=== PATIENT | male | born 1950 | race Caucasian/White ===

== ENCOUNTER 2020-03-10 07:51 | Outpatient (REF) | payer MEDICARE, SELFPAY ==
--- NOTE | 2020-03-10 08:22 | XR_ITS ---
EXAMINATION: XR SHOULDER, RIGHT CLINICAL INFORMATION: Pain right shoulder COMPARISON: None TECHNIQUE: AP external rotation, Grashey, scapular Y, and axillary views of the right shoulder. FINDINGS: There is mild loss of glenohumeral joint and AC joint space with periarticular spurring along the lateral acromion. No visible acute fracture, dislocation or subluxation seen. The soft tissues are normal. XR/XR shoulder RT min 2V IMPRESSION: Mild degenerative changes lateral joint and right AC joint. No visible acute fracture, dislocation or subluxation seen.
== END 2020-03-10 07:52 | disposition home or self-care (01) ==
LOC: HO.XRAY 07:51
PROVIDERS: PCP Internal Medicine; Visit Provider Physician Assistant
DX: M25.511 Pain in right shoulder (principal)
CPT/HCPCS: 73030

== ENCOUNTER → 2020-03-22 09:17 | Outpatient (BNVA) | payer MEDICARE, SELFPAY | PROVIDERS: PCP Internal Medicine; Visit Provider Orthopaedic Surgery | DX: M75.41 Impingement syndrome of right shoulder (principal) | CPT/HCPCS: 20610; 99202; J1100 ==

== ENCOUNTER 2020-04-28 07:08 | Outpatient (REF) | payer MEDICARE, SELFPAY ==
[2020-04-28 07:44] LABS: MANUAL DIFF FLAG NO
[2020-04-28 08:09] LABS: Basophils Percent Auto 0.4 % (0-2); Eosinophils Absolute Auto 0.2 X10*3/uL (0.0-0.4); Eosinophils Percent Auto 2.4 % (0-4); Hematocrit 46.3 % (42-52); Hemoglobin 15.4 g/dl (14.0-18.0); Imm Gran Abs Auto 0.02 X10*3/uL (0.00-0.03); Imm Gran Pct Auto 0.3 % (0.0-0.4); Lymphocytes Absolute Auto 1.8 X10*3/uL (1.2-4.9); Lymphocytes Percent Auto 26.9 % (20-40); Mean Corpuscular HGB Conc 33.3 g/dl (31.0-36.0); Mean Corpuscular Volume 96.1 fL (80-98); Mean Platelet Volume 10.3 fL (9.4-12.4); Monocytes Absolute Auto 0.7 X10*3/uL (0.1-1.2); Monocytes Percent Auto 10.6 % (2-11); Neutrophils Percent Auto 59.4 % (45-73); Platelet Count 200 X10*3/uL (160-400); Red Blood Count 4.82 X10*6/uL (4.60-5.80); Red Cell Distribution Width 13.3 % (11.0-16.0); White Blood Count 6.7 X10*3/uL (4.8-10.8)
[2020-04-28 08:18] LABS: Alanine Aminotransferase 34 U/L (0-40); Alkaline Phosphatase 35 U/L (39-117); Anion Gap 12 (12-20); Aspartate Amino Transferase 31 U/L (5-37); Bilirubin Total 1.2 mg/dL (0.0-1.0); Blood Urea Nitrogen 12 mg/dL (9-16); Calcium 8.7 mg/dL (8.4-10.2); Carbon Dioxide 28 mmol/L (22-29); Chloride 103 mmol/L (96-108); Cholesterol 154 mg/dL; Estimated Glomerular Filt Rate > 60; Glucose Random 122 mg/dL (60-115); HDL Cholesterol 65 mg/dL; LDL Cholesterol Calculated 65 mg/dl; Potassium 4.7 mmol/L (3.3-5.1); Sodium 138 mmol/L (135-145); Total Protein 6.8 g/dL (6.5-8.0); Triglycerides 122 mg/dL
[2020-04-28 08:26] LABS: Estimated Average Glucose 117 mg/dL; Hemoglobin A1c % 5.7 %
[2020-04-28 08:40] LABS: Free T4 (Free Thyroxine) 0.88 ng/dL (0.71-1.85); Prostate Specific Antigen Scr 1.72 ng/mL (<0.05-4.0); Thyroid Stimulating Hormone 1.65 uIU/mL (0.32-4.0)
[2020-04-30 08:31] LABS: Folate 15.5 ng/mL (> or = 4.0); Vitamin B12 228 pg/mL (200-900)
== END 2020-04-28 07:09 | disposition home or self-care (01) ==
LOC: HO.LAB 07:08
PROVIDERS: PCP Internal Medicine; Visit Provider Internal Medicine
DX: E66.9 Obesity, unspecified (principal); E78.00 Pure hypercholesterolemia, unspecified
CPT/HCPCS: 36415; 80053; 80061; 82607; 82746; 83036; 84153; 84439; 84443; 85025

== ENCOUNTER 2020-08-02 07:00 | Outpatient (RCR) | payer MEDICARE, SELFPAY ==
--- NOTE | 2020-05-03 13:59 | MHC.PT.EP ---
[facility] [place] Office [place] Office [place] Office [address] Tushar Wilson [address] [phone] F: [phone] F: [phone] F: [phone] F: [phone] Physical Therapy Plan of Care Date of Evaluation: 05/03/20 Date of Surgery: n/a Diagnosis: R shoulder impingement Assessment: Patient is a 69 year old R handed male who presents with s/s consistent with R shoulder pain/subacromial impingement. He is currently not working and has been very sedentary during the pandemic. Patient past medical history includes obesity. Current impairments include pain, ROM, posture, strength, safety, independence, activity tolerance and functional mobility. Functional limitations include decreased ability to roll in bed, lift, carry, push, pull, dress, reach, and perform weight bearing activities.. Patient is motivated with good rehab potential. Skilled PT will address impairments and functional limitations in order to achieve goals. Frequency and Duration: The patient will be seen 2x/week for 6 weeks Short Term Goals: I with HEP - 2 weeks AROM flexion/abd to 90, ER/IR arc to 120 - 3 weeks Able to sleep 4 hours without sleep disturbance - 3 weeks Mcfp Goals: SPADI 40/130 - 5 weeks strength 4/5 grossly - 6 weeks AROM flexion/abd 120, ER/IR arc 140 - 6 weeks Treatment Plan: Modalities to reduce pain, spasms and effusion. Manual therapy to restore motion and function. Therapeutic exercise to improve strength and flexibility. Neuromuscular re-education for posture and balance. Therapeutic activities to return to functional activities of daily living. Electronically signed by: Elvis Ambriz, PT Please sign and return to therapist. Thank you for your referral.
--- NOTE | 2020-08-07 11:47 | MHC.PT.DC ---
[facility] [place] Office [place] Office [place] Office [address] Tushar Wilson [address] [phone] F: [phone] F: [phone] F: [phone] F: [phone] Physical Therapy Discharge Report Diagnosis: R shoulder impingement Date of Surgery: n/a Date of Evaluation: 05/03/20 Date of Discharge: 08/07/20 Treatments to Date: 24 Cancellations to Date: 0 No Shows to Date: 0 Discharge Status: Achieved Goals Improved Function Independent with HEP Discharge Summary: Pt called to self d/c instead of attend final visit. At time of last visit, Pt has met all goals and improved tremendously. Objective measurements all up to date. He was issued a comprehensive HEP today that he has at home to continue with. Pt will continue to perform for 2 more visits then transition exclusively to HEP. Electronically signed by: Anuradha Sultana PT Please sign and return to therapist. Thank you for your referral.
== END 2020-08-07 11:47 | disposition home or self-care (01) ==
LOC: HO.PTCHIC 07:00
PROVIDERS: PCP Internal Medicine; Visit Provider Internal Medicine
DX: M75.41 Impingement syndrome of right shoulder (principal)
CPT/HCPCS: 97110; 97140; 97162

== ENCOUNTER 2021-01-07 09:19 | Outpatient (REF) | payer MEDICARE, SELFPAY ==
[2021-01-07 10:08] LABS: Hematocrit 45.3 % (42-52); Hemoglobin 15.4 g/dl (14.0-18.0); Platelet Count 195 X10*3/uL (160-400); Red Blood Count 4.67 X10*6/uL (4.60-5.80); Red Cell Distribution Width 13.4 % (11.0-16.0); White Blood Count 5.6 X10*3/uL (4.8-10.8)
[2021-01-07 10:20] LABS: Alanine Aminotransferase 65 U/L (0-40); Albumin Level 3.8 g/dL (3.5-5.0); Alkaline Phosphatase 35 U/L (39-117); Anion Gap 12 (12-20); Aspartate Amino Transferase 56 U/L (5-37); Bilirubin Total 0.8 mg/dL (0.0-1.0); Blood Urea Nitrogen 11 mg/dL (9-16); Calcium 8.6 mg/dL (8.4-10.2); Carbon Dioxide 25 mmol/L (22-29); Chloride 105 mmol/L (96-108); Cholesterol 154 mg/dL; Estimated Glomerular Filt Rate > 60; Glucose Fasting 114 mg/dL (60-99); HDL Cholesterol 55 mg/dL; LDL Cholesterol Calculated 77 mg/dl; Magnesium 2.3 mg/dL (1.6-2.6); Potassium 4.9 mmol/L (3.3-5.1); Sodium 137 mmol/L (135-145); Total Protein 6.6 g/dL (6.5-8.0); Triglycerides 113 mg/dL
[2021-01-07 10:22] LABS: Estimated Average Glucose 120 mg/dL; Hemoglobin A1c % 5.8 %
[2021-01-07 10:46] LABS: TSH reflex Free T4 1.53 uIU/mL (0.32-4.0); Vitamin D 25-OH Total 23.8 ng/mL (>30)
[2021-01-07 10:56] LABS: Folate 12.5 ng/mL (> or = 4.0); Vitamin B12 224 pg/mL (200-900)
[2021-01-10 23:26] LABS: Zinc 60 mcg/dL (60-130)
== END 2021-01-07 09:20 | disposition home or self-care (01) ==
LOC: HO.10HDL 09:19
PROVIDERS: Visit Provider Physician Assistant
DX: Z13.220 Encounter for screening for lipoid disorders (principal); E66.9 Obesity, unspecified; K13.0 Diseases of lips; I10 Essential (primary) hypertension
CPT/HCPCS: 36415; 80053; 80061; 82306; 82607; 82746; 83036; 83735; 84443; 84630; 85027

== ENCOUNTER 2021-02-20 08:45 | Outpatient (REF) | payer MEDICARE, SELFPAY ==
--- NOTE | ~2021-02-20 | US_ITS ---
EXAMINATION: US ABDOMEN LIMITED WITH LIVER ELASTOGRAPHY CLINICAL INFORMATION: Abnormal serum levels. COMPARISON: None. TECHNIQUE: Real-time imaging of the abdominal viscera. Noninvasive ultrasound liver fibrosis assessment is performed using Sonia ElastPQ point quantification shear wave elastography (pSWE) with a C5-2 MHz transducer. Multiple elastography samples are obtained. FINDINGS: PANCREAS: Visualized portions unremarkable. LIVER: Diffuse increased echotexture without focal abnormality. The right lobe measures 19.0 cm in length. The left lobe measures 12.4 cm in length. Portal flow is hepatopedal. Shear wave liver elastography median stiffness is 1.32 m/s (reference: normal median stiffness is 1.3 m/s or less). IQR/median stiffness to assess sampling precision is 0.22 (reference: good quality data set is IQR/median stiffness of 0.15 or less). GALLBLADDER: Surgically absent. COMMON BILE DUCT: The common hepatic duct measures 0.7 cm. The common bile duct measures 0.5 cm. RIGHT KIDNEY: 12.1 cm. Unremarkable. FREE FLUID: None. US/US abdomen lane w elastography IMPRESSION: 1. Hepatic steatosis. 2. Liver elastography: Liver stiffness, high probability normal. REFERENCE: Society of Radiologists in Ultrasound Liver Stiffness Thresholds (2020): LIVER STIFFNESS THRESHOLDS: *Liver Stiffness equal or less than 1.3 m/s: High probability of being normal. *Liver Stiffness less than 1.7 m/s: In the absence of other known clinical signs, rules out compensated advanced chronic liver disease. *Liver Stiffness 1.7-2.1 m/s: Suggestive of compensated advanced chronic liver disease but need further test for confirmation. *Liver Stiffness over 2.1 m/s: Rules in compensated advanced chronic liver disease. *Liver Stiffness over 2.4 m/s: Suggestive of clinically significant portal hypertension. QUALITY OF DATA SET: *IQR/Median value equal or less than 0.15 implies a quality data set. *IQR/Median value over 0.15 implies a poor quality data set. SIGNIFICANT CHANGE FROM PRIOR EXAM: Significant change if liver stiffness measurement is 10% or greater from prior exam. OTHER CONSIDERATIONS: The stage of liver fibrosis may be overestimated in the setting of acute hepatitis, liver inflammation, elevated liver function tests, hepatic vascular congestion, obstructive cholestasis, non-fasting state, and infiltrative diseases such as amyloidosis and lymphoma. In some patients with NAFLD, the liver stiffness thresholds for compensated advanced chronic liver disease may be lower. In causes other than viral hepatitis and NAFLD, liver stiffness thresholds are not well established.
== END 2021-02-20 08:46 | disposition home or self-care (01) ==
LOC: HO.US 08:45
PROVIDERS: PCP Internal Medicine; Visit Provider Physician Assistant
DX: R74.8 Abnormal levels of other serum enzymes (principal)
CPT/HCPCS: 76705; 76981

== ENCOUNTER 2021-12-25 08:19 | Outpatient (REF) | payer MEDICARE, SELFPAY ==
[2021-12-25 11:51] LABS: Anion Gap 16 (12-20); Blood Urea Nitrogen 11 mg/dL (9-16); Calcium 8.5 mg/dL (8.4-10.2); Carbon Dioxide 24 mmol/L (22-29); Chloride 104 mmol/L (96-108); Estimated Glomerular Filt Rate > 60; Glucose Fasting 119 mg/dL (60-99); Potassium 4.6 mmol/L (3.3-5.1); Sodium 139 mmol/L (135-145)
[2021-12-25 12:46] LABS: Prostate Specific Antigen 1.71 ng/mL (<0.05-4.0)
== END 2021-12-25 08:20 | disposition home or self-care (01) ==
LOC: HO.HMGCLDS 08:19
PROVIDERS: PCP Internal Medicine; Visit Provider Nurse Practitioner Family
DX: R73.01 Impaired fasting glucose (principal); Z13.1 Encounter for screening for diabetes mellitus; Z12.5 Encounter for screening for malignant neoplasm of prostate
CPT/HCPCS: 36415; 80048; 84153

== ENCOUNTER 2022-01-08 10:50 | Outpatient (REF) | payer MEDICARE, SELFPAY ==
[2022-01-08 14:13] LABS: Estimated Average Glucose 123 mg/dL; Hemoglobin A1c % 5.9 %
== END 2022-01-08 10:51 | disposition home or self-care (01) ==
LOC: HO.HMGCLDS 10:50
PROVIDERS: PCP Internal Medicine; Visit Provider Nurse Practitioner Family
DX: R73.01 Impaired fasting glucose (principal)
CPT/HCPCS: 36415; 83036

== ENCOUNTER 2022-12-18 07:09 | Outpatient (REF) | payer MEDICARE, SELFPAY ==
[2022-12-18 11:00] LABS: MANUAL DIFF FLAG NO
[2022-12-18 11:15] LABS: Basophils Percent Auto 0.5 % (0-2); Eosinophils Absolute Auto 0.2 X10*3/uL (0.0-0.4); Eosinophils Percent Auto 3.1 % (0-4); Hemoglobin 14.5 g/dl (14.0-18.0); Imm Gran Abs Auto 0.02 X10*3/uL (0.00-0.03); Imm Gran Pct Auto 0.3 % (0.0-0.4); Lymphocytes Percent Auto 35.5 % (20-40); Mean Corpuscular Hemoglobin 30.3 pg (27.0-33.0); Mean Corpuscular Volume 92.1 fL (80.0-98.0); Mean Platelet Volume 10.5 fL (9.4-12.4); Monocytes Absolute Auto 0.6 X10*3/uL (0.1-1.2); Monocytes Percent Auto 10.1 % (2-11); Neutrophils Absolute Auto 2.9 x10*3/uL (2.0-8.3); Neutrophils Percent Auto 50.5 % (45-73); Platelet Count 202 X10*3/uL (160-400); Red Blood Count 4.78 X10*6/uL (4.60-5.80); Red Cell Distribution Width 14.5 % (11.0-16.0); White Blood Count 5.8 X10*3/uL (4.8-10.8)
[2022-12-18 11:38] LABS: Alanine Aminotransferase 68 U/L (0-40); Albumin Level 3.7 g/dL (3.5-5.0); Alkaline Phosphatase 33 U/L (39-117); Anion Gap 15 (12-20); Aspartate Amino Transferase 50 U/L (5-37); Bilirubin Total 0.8 mg/dL (0.0-1.0); Blood Urea Nitrogen 12 mg/dL (9-16); Calcium 8.9 mg/dL (8.4-10.2); Carbon Dioxide 21 mmol/L (22-29); Chloride 107 mmol/L (96-108); Cholesterol 151 mg/dL (<200); Estimated Glomerular Filt Rate > 60; Glucose Random 115 mg/dL (60-115); HDL Cholesterol 47 mg/dL (>40); LDL Cholesterol Calculated 84 mg/dL (<100); Potassium 4.1 mmol/L (3.3-5.1); Sodium 139 mmol/L (135-145); Total Protein 6.9 g/dL (6.5-8.0); Triglycerides 103 mg/dL (<150)
[2022-12-18 11:58] LABS: Free T4 (Free Thyroxine) 0.85 ng/dL (0.71-1.85); Thyroid Stimulating Hormone 2.34 uIU/mL (0.32-4.0)
[2022-12-18 12:04] LABS: Folate 11.7 ng/mL (> or = 4.0); Prostate Specific Antigen Scr 1.68 ng/mL (<0.05-4.0); Vitamin B12 229 pg/mL (200-900)
[2022-12-18 12:45] LABS: Estimated Average Glucose 120 mg/dL; Hemoglobin A1c % 5.8 % (<6.0)
== END 2022-12-18 07:10 | disposition home or self-care (01) ==
LOC: HO.HMGCLDS 07:09
PROVIDERS: PCP Internal Medicine; Visit Provider Internal Medicine
DX: E66.9 Obesity, unspecified (principal); E78.00 Pure hypercholesterolemia, unspecified; R73.01 Impaired fasting glucose; Z12.5 Encounter for screening for malignant neoplasm of prostate
CPT/HCPCS: 36415; 80053; 80061; 82607; 82746; 83036; 84153; 84439; 84443; 85025

== ENCOUNTER 2022-12-25 10:46 | Outpatient (AMB) | payer MEDICARE, SELFPAY ==
[2022-12-25 10:55] VITALS: BP 140/90; PULSE 74; O2SAT 99; BMI 39.3
--- NOTE | 2022-12-25 10:55 | A.OFFVIS_ITS ---
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 Patient of Dr. Lua. Patient is up-to-date with his health preventative screenings and immunizations. [place] of care was reviewed with the patient and he was provided with a screening schedule. Patient reports that he has a healthcare proxy and MOLST form is on file. Recent blood work results from 12/2022 reviewed with the patient. [facility] Medical History (Updated 12/25/22 @ 13:35 by RUDDY Delgado) Annual physical exam Essential tremor Angular cheilitis Foot laceration Insomnia Obesity (BMI 30-39.9) Impingement syndrome of right shoulder History of varicose veins Surgical History History of colonoscopy Varicose veins of both lower extremities H/O gastric bypass History of tonsillectomy Hx of cholecystectomy History of hammer toe correction Family History Mother No problems noted. Father No problems noted. Social History Housing: House Alcohol intake: current Alcohol intake frequency: 3 or more drinks per day Alcohol type: beer Patient Tobacco Use Status: Never used Tobacco Tobacco use type: Cigarette e-Cigarette/Vaping Use: Never Used Second Hand Smoke Exposure: No Current occupational status: retired Current occupation: right handed Questionnaire Medicare Wellness Checkup [age] What gender do you identify with?: male During the past 4 weeks, how much have you been bothered by emotional problems such as feeling anxious, depressed, irritable, sad or downhearted, and blue?: not at all During the past 4 weeks, has your physical & emotional health limited your social activities with family, friends, neighbors, or groups?: not at all During the past 4 weeks, how much bodily pain have you generally had?: mild pain During the past 4 weeks, was someone available to help you if you needed & wanted help?: yes, as much as I wanted During the past 4 weeks, what was the hardest physical activity you could do for at least 2 minutes?: heavy Can you get to places out of walking distance without help? (For eg., can you travel alone on buses, taxis or drive your car?): Yes Can you go shopping for groceries or clothes without someone's help?: Yes Can you prepare your own meals?: Yes Can you do your housework without help?: Yes Because of any health problems, do you need the help of another person with your personal care needs such as eating, bathing, dressing or getting around the house?: No Can you handle your own money without help?: Yes During the past 4 weeks, how would you rate your health in general?: good During the past 4 weeks how have things been going for you?: pretty well Are you having difficulties driving your car?: no Do you always fasten your seat belt when you are in a car?: yes, usually During past 4 weeks, have you been bothered by the following: never: Falling or dizzy when standing up, Trouble eating well?, Teeth or denture problems?, Problems using the telephone? and Tiredness or fatigue? Have you fallen 2 or more times in the past year?: No Are you afraid of falling?: No Are you a smoker?: no During the past 4 weeks, how many drinks of wine, beer, or other alcoholic beverages did you have?: 2-5 drinks per week Do you exercise for about 20 minutes 3 or more times a week?: no, I usually do not exercise this much Have you been given information to help with the following?: no: Hazards in your house that might hurt you? and no: Keeping track of your medications? How often do you have trouble taking medicines the way you have been told to take them?: I do not have to take medicine How confident are you that you can control & manage most of your health problems?: somewhat confident What is your race?: White Mini Mental State Exam (MMSE) Orientation What is the (year) (season) (date) (day) (month)?: year, season, date, day and month Score Score: 5 Activity of Daily Living Bathing - sponge bath, tub bath or shower: receives no assistance (gets in/out by self, if usual bathing means Dressing - getting clothes from closets & drawers, including inner/outer garments & fasteners.: gets clothes & gets completely dressed without help Toileting - going to the 'toilet room' for urine/bowel elimination & cleaning self/arranging clothes: goes to toilet room, cleans self, arranges clothes without help Transfer: moves in & out of bed and chair without help (may use support object) Continence: controls urination/bowel movements completely by self Feeding: feeds self without help Total Score: 0 Information obtained from: patient Using telephone: independent Traveling: independent Shopping: independent Preparing meals: independent Housework: independent Taking medicine: independent Managing money: independent PHQ-9 Over the last 2 weeks, how often have you been bothered by any of the following problems? 1. Little interest or pleasure in doing things: not at all 2. Feeling down, depressed, or hopeless: not at all 3. Trouble falling or staying asleep, or sleeping too much: nearly every day 4. Feeling tired or having little energy: not at all 5. Poor appetite or overeating: not at all 6. Feeling bad about yourself - or that you are a failure or have let yourself or your family down: not at all 7. Trouble concentrating on things, such as reading the newspaper or watching television: not at all 8. Moving or speaking so slowly that other people could have noticed. Or the opposite - being so fidgety or restless that you have been moving around a lot more than usual: not at all 9. Thoughts that you would be better off or of hurting yourself in some way: not at all Total score: 3 Depression Screening Interpretation: Negative Depression Screening Done: Yes 79714 - PHQ-9 Billing: Yes Source: Developed by Drs. Castro Jordan, Patricia Sears, Jacques Cornell and colleagues, with an educational jaimie from [employer]. Physical Exam Vital Signs: Last Vital Signs Pulse 74 12/25/22 10:55 BP 140/90 H 12/25/22 10:55 Pulse Ox 99 12/25/22 10:55 Oxygen Delivery Method Room Air 12/25/22 10:55 BMI result Body Mass Index 39.3 Const General: cooperative and no acute distress Orientation/consciousness: patient oriented x3 HEENT Other: Whisper test: fail - bilateral hearing aids Neuro Other: Balance: Normal Get up and walk: able to Romberg: negative Tandem gait: unable to General: patient oriented x3 Assessment & Plan Assessment & Plan (1) Alcohol use: Code(s): Z72.89 - Other problems related to lifestyle Plan: Patient has cut down on alcohol consumption per patient (2) Obese: Code(s): E66.9 - Obesity, unspecified Qualifiers: Body mass index: BMI 39.0-39.9 Obesity classification: adult class 2 (BMI 35 - 39.9) Obesity type: due to excess calories Serious obesity comorbidity presence: without serious comorbidity Qualified Code(s): E66.09 - Other obesity due to excess calories; Z68.39 - Body mass index [BMI] 39.0-39.9, adult Plan: Healthy food choices and exercise as tolerated (3) Medicare annual wellness visit, subsequent: Code(s): Z00.00 - Encounter for general adult medical examination without abnormal findings (4) Elevated fasting glucose: Code(s): R73.01 - Impaired fasting glucose Plan: A1c 5.8 12/2022 (5) Hepatic steatosis: Comment: 02/2021 Code(s): K76.0 - Fatty (change of) liver, not elsewhere classified Plan: Encourage low-cholesterol diet and weight loss Quality Reporting (2019) Depression/Bipolar (159/160/161/177) PHQ-9: Total score: 3 Coding Level of Care Code Medicare Subsequent (G0439) Diagnoses Alcohol use Z72.89 Class 2 obesity due to excess calories without serious comorbidity with body mass index (BMI) of 39.0 to 39.9 in adult E66.09; Z68.39 Body mass index: BMI 39.0-39.9 Obesity classification: adult class 2 (BMI 35 - 39.9) Obesity type: due to excess calories Serious obesity comorbidity presence: without serious comorbidity Medicare annual wellness visit, subsequent Z00.00 Elevated fasting glucose R73.01 Hepatic steatosis K76.0 CPT Codes Advance Care Planning - Advance Care Planning discussion: On file, no changes ([id number]) Advance Care Planning - Time spent: 1-15 minutes, on File ([id number]) Advance Care Planning Advance Care Planning discussion: On file, no changes Date of discussion: 12/25/22 Who was present: pt and radiator tester Forms completed: None Time spent: 1-15 minutes, on File Actual minutes spent: 1 Did not discuss due to Cultural/Spiritual beliefs: No
== END 2022-12-25 11:39 | disposition home or self-care (01) ==
PROVIDERS: Visit Provider Nurse Practitioner Family
DX: Z00.00 Encounter for general adult medical examination without abnormal findings (principal); E66.09 Other obesity due to excess calories; Z68.39 Body mass index [BMI] 39.0-39.9, adult; R73.01 Impaired fasting glucose; Z72.89 Other problems related to lifestyle; K76.0 Fatty (change of) liver, not elsewhere classified
CPT/HCPCS: 1123F; G0439

== ENCOUNTER 2023-03-27 12:08 | Outpatient (AMB) | payer MEDICARE, SELFPAY ==
--- NOTE | 2023-03-27 12:35 | A.OFFPC_ITS ---
Vital Signs 3 03/27/23 12:38 03/27/23 12:45 Height 6 ft Weight 294 lb 8 oz BMI 39.9 BP 150/80 H 132/86 Blood Pressure Location Lt brachial Lt brachial Position Sitting Sitting Pulse 78 Pulse Source Pulse Oximeter Pulse Oximetry (%) 98 Oxygen Delivery Method Room Air Intake Visit Reasons: 3mth f/u Intake Note: Patient is here today for a follow up on Obesity. Pt is requesting for a physical. 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 Required: No Material Carrier: Not Required per policy Accompanied by: Self / Same As Patient Allergies No Known Allergies Allergy (Verified 03/27/23 12:37) Medication List - Last Reconciled 03/27/23 by Nidia Lua MD diphenhydramine HCl (ZzzQuil) 25 mg PO BEDTIME PRN Tobacco use date assessed: 03/27/23 Fall risk assessment: No Falls in past year Last assessed Fall Risk: 03/27/23 Dental Screening Dental Screen Date: 03/27/23 Did you have a dental visit in the last 12 months?: Yes Did you have a dental problem in the last 6 months where you did not have access to dental care?: No Was dental information given to patient?: Patient has dentist HPI 3mth f/u 2 HPI0 Details 72-year-old obese male with hepatic stea tosis coming in for follow-up. Last seen in 2020 having right shoulder impingement syndrome and blood work was requested also. Review of the notes was seen by the nurse practitioner for an annual well visit in December 2022. marital problem stress . wants to have PE done, numbness of feet, onychomycosis, leg swelling, knee oa, low back pain, growth on head- wart and willbe seeing 03/2023 dermatology [facility] Medical History (Updated 03/27/23 @ 13:21 by Nidia Lua MD) Elevated fasting glucose Screening for prostate cancer Elevated liver enzymes Screening for hypercholesterolemia Screening for diabetes mellitus (DM) Annual physical exam Essential tremor Angular cheilitis Foot laceration Insomnia Obesity (BMI 30-39.9) Impingement syndrome of right shoulder History of varicose veins Surgical History History of colonoscopy Varicose veins of both lower extremities H/O gastric bypass History of tonsillectomy Hx of cholecystectomy History of hammer toe correction Family History (Updated 03/27/23 @ 12:42 by SHALONDA Lopez) Mother No problems noted. Father No problems noted. Social History (Updated 03/27/23 @ 12:59 by Nidia Lua MD) Housing: House Alcohol intake: current Alcohol intake frequency: 3 or more drinks per day Alcohol type: beer Comment: case a week Patient Tobacco Use Status: Never used Tobacco Tobacco use type: Cigarette e-Cigarette/Vaping Use: Never Used Second Hand Smoke Exposure: No service: No Current occupational status: retired Current occupation: right handed Cognitive needs: No Hearing needs: Yes (hearing aide) Vision needs: Yes (glasses) Questionnaire PHQ-9 Over the last 2 weeks, how often have you been bothered by any of the following problems? 1. Little interest or pleasure in doing things: not at all 2. Feeling down, depressed, or hopeless: not at all 3. Trouble falling or staying asleep, or sleeping too much: not at all 4. Feeling tired or having little energy: not at all 5. Poor appetite or overeating: not at all 6. Feeling bad about yourself - or that you are a failure or have let yourself or your family down: not at all 7. Trouble concentrating on things, such as reading the newspaper or watching television: not at all 8. Moving or speaking so slowly that other people could have noticed. Or the opposite - being so fidgety or restless that you have been moving around a lot more than usual: not at all 9. Thoughts that you would be better off or of hurting yourself in some way: not at all Total score: 0 Depression Screening Interpretation: Negative Depression Screening Done: Yes Source: Developed by Drs. Castro Jordan, Patricia Sears, Jacques Cornell and colleagues, with an educational jaimie from [employer]. Thrive Questionnaire Date Thrive assessed: 03/27/23 I am a: Patient What is your living situation today?: I have a steady place to live Within the past 12 months, did the food you bought not last and you didn't have the money to get more?: Never true Within the past 12 months, did you worry whether your food would run out before you got money to buy more?: Never true Do you have trouble paying for medicines?: No Do you have trouble getting transportation to medical appointments?: No Do you have trouble paying your heating and electricity bill?: No Do you have trouble taking care of your child, family member or friend?: No Do you have trouble with day-to-day activities such as bathing, preparing meals, shopping, managing finances, etc.?: No Are you currently unemployed and looking for a job?: No Are you interested in more education?: No Currently or been in a relationship where the following occur: no concerns reported AUDIT C Alcohol Use Questionnaire (AUDIT-C) 1. How often do you have a drink containing alcohol?: 2-3 times a week 2. How many drinks containing alcohol do you have on a typical day when you are drinking?: 3 or 4 Total Score: 4 RENETTA-7 AMB Questionnaire RENETTA-7 Date RENETTA - 7 assessed: 03/27/23 Feeling nervous, anxious, or on edge: 0 = Not at all Not being able to stop or control worryin = Not at all Worrying too much about different things: 0 = Not at all Trouble relaxin = Not at all Being so restless that it is hard to sit still: 0 = Not at all Becoming easily annoyed or irritable: 0 = Not at all Feeling afraid as if something awful might happen: 0 = Not at all Total RENETTA-7 score (0-4 normal; 5-9 mild; 10-14 moderate; 15-21 severe): 0 Source: Developed by Drs. Castro Jordan, Patricia Sears, Jacques Cornell and colleagues, with an educational jaimie from [employer]. Physical exam (Primary Care) Vital Signs: Last Vital Signs Pulse 78 03/27/23 12:38 BP 132/86 03/27/23 12:45 Pulse Ox 98 03/27/23 12:38 Oxygen Delivery Method Room Air 03/27/23 12:38 BMI result Body Mass Index 39.9 Tobacco/Smoking Status: Tobacco use Status Tobacco use date assessed 03/27/23 03/27/23 12:40 Patient Tobacco Use Status Never used Tobacco 03/27/23 12:59 Tobacco use type Cigarette 03/27/23 12:59 e-Cigarette/Vaping Use Never Used 03/27/23 12:59 PHQ-9: PHQ-9 Score PHQ-9: Total score 0 03/27/23 12:56 Depression Screening Interpretation: Negative Thrive Assessment: Date of Thrive Assessment Date Thrive assessed 03/27/23 03/27/23 12:40 Currently or been in a relationship where the following occur: no concerns reported Const General: alert; No acute distress HENMT Other: Bilateral impacted cerumen Head: Yes normocephalic Ears: external ears normal Face and sinus: Yes normal facial exam Mouth: moist mucous membranes Throat: Yes tonsils normal Eyes Conjunctivae: conjunctivae normal Pupils: Equal, round and reactive pupils present and Pupil accommodation reflex normal Direct Ophthalmoscopy: normal light reflex Neck Neck: No lymphadenopathy Thyroid: Thyroid normal Chest Chest palpation & inspection: normal inspection of the chest Resp Effort & Inspection: normal respiratory effort and no audible wheezes Auscultation: clear to auscultation bilaterally Cardio Rate: regular rate Rhythm: regular rhythm Peripheral pulses: radial pulses present and dorsalis pedis present GI Inspection: Yes normal to inspection Palpation (GI): no masses Auscultation: normal bowel sounds and normoactive bowel sounds Rectal Exam - Male: Yes deferred Skin General skin exam: no rashes or lesions noted Rashes: no rashes Full body images: 2 1. Scaly grayish brown rash 1 cm on the right lower chest and right upper back (pedunculated) 2. Neuro General: deep tendon reflexes 2+ bilaterally Cranial nerves: Yes Equal, round and reactive pupils present, Yes Midline tongue present and Yes Ability to bilaterally elevate shoulders present Cognition (Neuro): normal cognition Gait exam (Neuro): Normal gait present Motor exam (neuro): 5/5 motor strength present throughout Deep tendon reflexes (DTR's): Right brachioradialis reflex intensity grade: 2+, Left brachioradialis reflex intensity grade: 2+, Right patellar reflex intensity grade: 2+ and Left patellar reflex intensity grade: 2+ Extrem General: Yes normal to inspection and No edema Office Procedures Cerumen Removal From which ear canal was the cerumen removed: bilateral Removal: otoscope w/curette and cerumen loop/spoon Notes: patient tolerated procedure well, no complications and ear canal clear [id number] Wax Removal by Spoon/Curette Assessment and Plan Assessment & Plan (1) Impaired glucose tolerance: Code(s): R73.02 - Impaired glucose tolerance (oral) Plan: Decrease the amount of carbohydrate intake, pasta, bread, rice and potatoes are all sugar and that is aside from all the sweet stuff, remember that fruits are good but they are Sweet also. (2) Hepatic steatosis: Comment: 02/2021 Code(s): K76.0 - Fatty (change of) liver, not elsewhere classified Plan: Low-fat diet and exercise (3) Obesity (BMI 30-39.9): Code(s): E66.9 - Obesity, unspecified Plan: Diet and exercise (4) Peripheral neuropathy: Code(s): G62.9 - Polyneuropathy, unspecified Plan: will monitor for now (5) Impacted cerumen of both ears: Code(s): H61.23 - Impacted cerumen, bilateral Plan: scoop used TM intact (6) Peripheral vascular disease: Code(s): I73.9 - Peripheral vascular disease, unspecified Plan: elevate legs and exercise , use support stockings (7) Actinic keratoses: Code(s): L57.0 - Actinic keratosis Plan: will be seeing dermatology peduculated Upper back (8) Vitamin B 12 deficiency: Code(s): E53.8 - Deficiency of other specified B group vitamins Plan: keep well hydrated vitamin b 12 1000 mcg QD (9) Onychomycosis: Code(s): B35.1 - Tinea unguium Plan: will monitor for the moment Coding Level of Care Code Est Pt Prev Care >65y(76370) Diagnoses Impaired glucose tolerance R73.02 Hepatic steatosis K76.0 Obesity (BMI 30-39.9) E66.9 Peripheral neuropathy G62.9 Impacted cerumen of both ears H61.23 Peripheral vascular disease I73.9 Actinic keratoses L57.0 Vitamin B 12 deficiency E53.8 Onychomycosis B35.1 CPT Codes Office Procedure - CPT: [id number] Wax Removal by Spoon/Curette ([id number])
[2023-03-27 12:38] VITALS: BP 150/80; PULSE 78; O2SAT 98; BMI 39.9
[2023-03-27 12:45] VITALS: BP 132/86
== END 2023-03-27 13:28 | disposition home or self-care (01) ==
PROVIDERS: PCP Internal Medicine; Visit Provider Internal Medicine
DX: I73.9 Peripheral vascular disease, unspecified (principal); E66.9 Obesity, unspecified; H61.23 Impacted cerumen, bilateral; Z68.39 Body mass index [BMI] 39.0-39.9, adult; R73.02 Impaired glucose tolerance (oral); K76.0 Fatty (change of) liver, not elsewhere classified; G62.9 Polyneuropathy, unspecified; L57.0 Actinic keratosis; E53.8 Deficiency of other specified B group vitamins; B35.1 Tinea unguium
CPT/HCPCS: 69210; 99213

== ENCOUNTER 2023-09-25 09:24 | Outpatient (AMB) | payer MEDICARE, SELFPAY ==
--- NOTE | 2023-09-25 09:43 | A.OFFPC_ITS ---
Vital Signs 09/25/23 09:44 Height 6 ft Weight 289 lb BMI 39.2 BP 158/92 H Blood Pressure Location Lt brachial Position Sitting Pulse 81 Pulse Source Pulse Oximeter Pulse Oximetry (%) 98 Oxygen Delivery Method Room Air Intake Visit Reasons: hepatic steatosis Intake Note: Patient did drink coffee prior to coming in. Allergies No Known Allergies Allergy (Verified 09/25/23 09:44) Tobacco use date assessed: 03/27/23 Fall risk assessment: No Falls in past year Last assessed Fall Risk: 09/25/23 Dental Screening Dental Screen Date: 09/25/23 Did you have a dental visit in the last 12 months?: Yes Did you have a dental problem in the last 6 months where you did not have access to dental care?: No Was dental information given to patient?: Patient has dentist HPI hepatic steatosis HPI Details 72-year-old obese male with impaired glu cose tolerance fatty liver peripheral neuropathy peripheral vascular disease coming in for follow-up. Last seen in March 2023. [facility] Medical History (Updated 09/25/23 @ 10:00 by Nidia Lua MD) Obese Elevated fasting glucose Screening for prostate cancer Elevated liver enzymes Screening for hypercholesterolemia Screening for diabetes mellitus (DM) Annual physical exam Essential tremor Angular cheilitis Foot laceration Insomnia Obesity (BMI 30-39.9) Impingement syndrome of right shoulder History of varicose veins Surgical History History of colonoscopy Varicose veins of both lower extremities H/O gastric bypass History of tonsillectomy Hx of cholecystectomy History of hammer toe correction Family History (Updated 03/27/23 @ 12:42 by SHALONDA Lopez) Mother No problems noted. Father No problems noted. Social History (Updated 03/27/23 @ 12:59 by Nidia Lua MD) Housing: House Alcohol intake: current Alcohol intake frequency: 3 or more drinks per day Alcohol type: beer Comment: case a week Patient Tobacco Use Status: Never used Tobacco Tobacco use type: Cigarette e-Cigarette/Vaping Use: Never Used Second Hand Smoke Exposure: No service: No Current occupational status: retired Current occupation: right handed Cognitive needs: No Hearing needs: Yes (hearing aide) Vision needs: Yes (glasses) Questionnaire PHQ-9 Over the last 2 weeks, how often have you been bothered by any of the following problems? 1. Little interest or pleasure in doing things: not at all 2. Feeling down, depressed, or hopeless: not at all 3. Trouble falling or staying asleep, or sleeping too much: not at all 4. Feeling tired or having little energy: not at all 5. Poor appetite or overeating: not at all 6. Feeling bad about yourself - or that you are a failure or have let yourself or your family down: not at all 7. Trouble concentrating on things, such as reading the newspaper or watching television: not at all 8. Moving or speaking so slowly that other people could have noticed. Or the opposite - being so fidgety or restless that you have been moving around a lot more than usual: not at all 9. Thoughts that you would be better off or of hurting yourself in some way: not at all Total score: 0 Depression Screening Interpretation: Negative Depression Screening Done: Yes Source: Developed by Drs. Castro Jordan, Patricia Sears, Jacques Cornell and colleagues, with an educational jaimie from [employer]. Thrive Questionnaire Date Thrive assessed: 03/27/23 AUDIT C Alcohol Use Questionnaire (AUDIT-C) 1. How often do you have a drink containing alcohol?: 2-3 times a week 2. How many drinks containing alcohol do you have on a typical day when you are drinking?: 3 or 4 Total Score: 4 RENETTA-7 AMB Questionnaire RENETTA-7 Date RENETTA - 7 assessed: 03/27/23 Source: Developed by Drs. Castro Jordan, Patricia Sears, Jacques Cornell and colleagues, with an educational jaimie from [employer]. Physical exam (Primary Care) Vital Signs: Last Vital Signs Pulse 81 09/25/23 09:44 BP 158/92 H 09/25/23 09:44 Pulse Ox 98 09/25/23 09:44 Oxygen Delivery Method Room Air 09/25/23 09:44 BMI result Body Mass Index 39.2 Tobacco/Smoking Status: Tobacco use Status Tobacco use date assessed 03/27/23 09/25/23 09:50 Patient Tobacco Use Status Never used Tobacco 09/25/23 09:50 Tobacco use type Cigarette 09/25/23 09:50 e-Cigarette/Vaping Use Never Used 09/25/23 09:50 PHQ-9: PHQ-9 Score PHQ-9: Total score 0 09/25/23 09:50 Depression Screening Interpretation: Negative Thrive Assessment: Date of Thrive Assessment Date Thrive assessed 03/27/23 09/25/23 09:50 Const General: alert; No acute distress Eyes Conjunctivae: conjunctivae normal Resp Auscultation: clear to auscultation bilaterally Cardio Rate: regular rate Rhythm: regular rhythm GI Inspection: Yes normal to inspection Extrem General: Yes normal to inspection and No edema Assessment and Plan Assessment & Plan (1) Obesity (BMI 30-39.9): Code(s): E66.9 - Obesity, unspecified Plan: Diet and exercise. Discussed with the patient the concerns about not keeping active. (2) Hepatic steatosis: Comment: 02/2021 Code(s): K76.0 - Fatty (change of) liver, not elsewhere classified Plan: Low-fat diet and exercise will follow-up on blood work (3) Impaired glucose tolerance: Code(s): R73.02 - Impaired glucose tolerance (oral) Plan: Decrease the amount of carbohydrate intake, pasta, bread, rice and potatoes are all sugar and that is aside from all the sweet stuff, remember that fruits are good but they are Sweet also. (4) Vitamin B 12 deficiency: Code(s): E53.8 - Deficiency of other specified B group vitamins Plan: Discussed about vitamin B12 deficiency and will retest (5) Colon cancer screening: Code(s): Z12.11 - Encounter for screening for malignant neoplasm of colon Orders: Orders Hemoglobin A1c Today R73.02 - Impaired glucose tolerance (oral) Comprehensive Met. Panel Today R73.02 - Impaired glucose tolerance (oral) Complete Blood Count Auto Diff Today K76.0 - Fatty (change of) liver, not elsewhere classified Free T4 (Free Thyroxine) Today K76.0 - Fatty (change of) liver, not elsewhere classified Vitamin B12 and Folate Today K76.0 - Fatty (change of) liver, not elsewhere classified US abdomen complete Today K76.0 - Fatty (change of) liver, not elsewhere classified, R79.89 - Other specified abnormal findings of blood chemistry Lipid Panel Today E78.00 - Pure hypercholesterolemia, unspecified, K76.0 - Fatty (change of) liver, not elsewhere classified Thyroid Stimulating Hormone Today K76.0 - Fatty (change of) liver, not elsewhere classified Hepatitis B,C Profile Today K76.0 - Fatty (change of) liver, not elsewhere classified, R79.89 - Other specified abnormal findings of blood chemistry Prostate Specific Antigen Scr Today K76.0 - Fatty (change of) liver, not elsewhere classified Coding Level of Care Code Est Pt Level 4 (04711) Diagnoses Obesity (BMI 30-39.9) E66.9 Hepatic steatosis K76.0 Impaired glucose tolerance R73.02 Vitamin B 12 deficiency E53.8 Colon cancer screening Z12.11
[2023-09-25 09:44] VITALS: BP 158/92; PULSE 81; O2SAT 98; BMI 39.2
== END 2023-09-25 10:09 | disposition home or self-care (01) ==
PROVIDERS: PCP Internal Medicine; Visit Provider Internal Medicine
DX: K76.0 Fatty (change of) liver, not elsewhere classified (principal); E66.9 Obesity, unspecified; Z68.39 Body mass index [BMI] 39.0-39.9, adult; R73.02 Impaired glucose tolerance (oral); E53.8 Deficiency of other specified B group vitamins; Z12.11 Encounter for screening for malignant neoplasm of colon
CPT/HCPCS: 99214

== ENCOUNTER 2023-10-05 08:50 | Outpatient (REF) | payer MEDICARE, SELFPAY ==
--- NOTE | ~2023-10-05 | US_ITS ---
EXAMINATION: US ABDOMEN COMPLETE CLINICAL INFORMATION: Other specified abnormal findings of blood chemistry. Fatty (change of) liver. COMPARISON: US abdomen complete with liver elastography 02/20/2021. TECHNIQUE: Real-time imaging of the abdominal viscera. Technically limited study secondary to body habitus. FINDINGS: PANCREAS: Obscured by gas. Visible portions of the head within normal limits. ABDOMINAL AORTA: Within normal limits with mild atherosclerosis INFERIOR VENA CAVA: Visualized portions are normal. LIVER: Enlarged measuring 20 cm. The liver contour is normal. There is diffuse increased liver parenchymal echogenicity, consistent with hepatic steatosis. No focal hepatic lesion. There is no intrahepatic biliary duct dilatation seen. GALLBLADDER: Surgically absent. COMMON BILE DUCT: Normal in caliber measuring 0.5 cm in diameter. RIGHT KIDNEY: Normal. No hydronephrosis. No renal calculi or focal parenchymal lesions. The kidney measures 13.3 cm in maximum dimension. LEFT KIDNEY: Normal. No hydronephrosis. No renal calculi or focal parenchymal lesions. The kidney measures 12.5 cm in maximum dimension. SPLEEN: Normal. The spleen measures 9.4 cm in maximum dimension. FREE FLUID: None. US/US abdomen complete IMPRESSION: Hepatic steatosis and hepatomegaly.
[2023-10-05 13:10] LABS: MANUAL DIFF FLAG NO
[2023-10-05 13:23] LABS: Basophils Percent Auto 0.5 % (0-2); Eosinophils Absolute Auto 0.1 X10*3/uL (0.0-0.4); Eosinophils Percent Auto 1.6 % (0-4); Hematocrit 44.2 % (42.0-52.0); Hemoglobin 14.5 g/dl (14.0-18.0); Imm Gran Abs Auto 0.01 X10*3/uL (0.00-0.03); Imm Gran Pct Auto 0.2 % (0.0-0.4); Lymphocytes Absolute Auto 1.5 X10*3/uL (1.2-4.9); Lymphocytes Percent Auto 27.4 % (20-40); Mean Corpuscular HGB Conc 32.8 g/dl (31.0-36.0); Mean Corpuscular Hemoglobin 29.5 pg (27.0-33.0); Mean Corpuscular Volume 89.8 fL (80.0-98.0); Mean Platelet Volume 10.5 fL (9.4-12.4); Monocytes Absolute Auto 0.7 X10*3/uL (0.1-1.2); Monocytes Percent Auto 11.5 % (2-11); Neutrophils Absolute Auto 3.3 x10*3/uL (2.0-8.3); Neutrophils Percent Auto 58.8 % (45-73); Platelet Count 225 X10*3/uL (160-400); Red Blood Count 4.92 X10*6/uL (4.60-5.80); Red Cell Distribution Width 14.6 % (11.0-16.0); White Blood Count 5.6 X10*3/uL (4.8-10.8)
[2023-10-05 13:36] LABS: Estimated Average Glucose 120 mg/dL; Hemoglobin A1C 151.0504 umol/L; Hemoglobin A1c % 5.8 % (<6.0); Total Hemoglobin (HGBA1C) 3767.3589 umol/L
[2023-10-05 13:51] LABS: Alanine Aminotransferase 34 U/L (0-40); Alkaline Phosphatase 34 U/L (39-117); Anion Gap 14 (12-20); Aspartate Amino Transferase 28 U/L (5-37); Bilirubin Total 1.2 mg/dL (0.0-1.0); Blood Urea Nitrogen 16 mg/dL (9-16); Calcium 9.2 mg/dL (8.4-10.2); Carbon Dioxide 23 mmol/L (22-29); Chloride 105 mmol/L (96-108); Cholesterol 146 mg/dL (<200); Estimated Glomerular Filt Rate > 60; Glucose Random 112 mg/dL (60-115); HDL Cholesterol 47 mg/dL (>40); LDL Cholesterol Calculated 72 mg/dL (<100); Potassium 4.4 mmol/L (3.3-5.1); Sodium 138 mmol/L (135-145); Total Protein 7.2 g/dL (6.5-8.0); Triglycerides 137 mg/dL (<150)
[2023-10-05 13:54] LABS: Free T4 (Free Thyroxine) 0.84 ng/dL (0.71-1.85); Thyroid Stimulating Hormone 1.35 uIU/mL (0.32-4.0)
[2023-10-05 14:08] LABS: Folate 8.8 ng/mL (> or = 4.0); Prostate Specific Antigen Scr 2.11 ng/mL (<0.05-4.0); Vitamin B12 267 pg/mL (200-900)
[2023-10-06 08:44] LABS: HBS Num1 0.26 mIU/mL (0-7.99); HBc Num1 0.14 S/CO (0.00-0.79); HBsAGNum1 0.28 S/CO (0.00-0.99); Hepatitis B Core Antibody Nonreactive (Nonreactive); Hepatitis B Surface Antigen Negative (Negative); ~HepC Num1 0.07 S/CO (0.00-0.79); ~Hepatitis B Surface Antibody NONREACTIVE (Nonreactive); ~Hepatitis C Antibody Nonreactive (Nonreactive)
== END 2023-10-05 08:51 | disposition home or self-care (01) ==
LOC: HO.HMGCX 08:50
PROVIDERS: PCP Internal Medicine; Visit Provider Internal Medicine
DX: R79.89 Other specified abnormal findings of blood chemistry (principal); K76.0 Fatty (change of) liver, not elsewhere classified; R73.02 Impaired glucose tolerance (oral); E78.00 Pure hypercholesterolemia, unspecified; Z12.5 Encounter for screening for malignant neoplasm of prostate
CPT/HCPCS: 36415; 76700; 80053; 80061; 82607; 82746; 83036; 84153; 84439; 84443; 85025; 86704; 86706; 86803; 87340

== ENCOUNTER 2023-12-29 09:55 | Outpatient (AMB) | payer MEDICARE, SELFPAY ==
--- NOTE | 2023-12-29 10:02 | A.OFFVIS_ITS ---
Intake Vital Signs 12/29/23 10:05 Height 6 ft Weight 292 lb 2 oz BMI 39.6 BP 123/80 Blood Pressure Location Lt brachial Position Sitting Pulse 78 Pulse Source Pulse Oximeter Pulse Oximetry (%) 97 Oxygen Delivery Method Room Air Intake Visit Reasons: MYLENE [id number] Intake Note: Patient is here for an Annual Wellness Visit. Geography Department Chair Required: No Industrial Organizational Psychologist: Industrial Organizational Psychologist offered & declined Accompanied by: Self / Same As Patient Allergies No Known Allergies Allergy (Verified 12/29/23 10:04) Medication List - Last Reconciled 12/29/23 by Nidia Lua MD diphenhydramine HCl (ZzzQuil) 25 mg PO BEDTIME PRN diphenhydramine-acetaminophen 25-500 mg caps PO HPI SWV G0439 HPI Details 73-year-old obese male with hepatic stea tosis impaired glucose tolerance vitamin B12 deficiency coming in for follow-up. Last seen in September 2023. Patient had colonoscopy last in March [address] Wright. Patient is here for annual well visit. So for Gastroenterology Dr. Wright, for Orthopedics patient sees Dr. Alarcon. [place] [facility] Ophthal[facility] Medical History (Updated 12/29/23 @ 10:52 by Nidia Lua MD) Colon cancer screening Obese Elevated fasting glucose Screening for prostate cancer Elevated liver enzymes Screening for hypercholesterolemia Screening for diabetes mellitus (DM) Annual physical exam Essential tremor Angular cheilitis Foot laceration Insomnia Obesity (BMI 30-39.9) Impingement syndrome of right shoulder History of varicose veins Surgical History History of colonoscopy Varicose veins of both lower extremities H/O gastric bypass History of tonsillectomy Hx of cholecystectomy History of hammer toe correction Family History Mother No problems noted. Father No problems noted. Social History (Updated 12/29/23 @ 10:36 by Nidia Lua MD) Housing: House Alcohol intake: current Alcohol intake frequency: 3 or more drinks per day Alcohol type: beer Comment: case a week( 4-5 x a week 6 pack 12/2023) Patient Tobacco Use Status: Never used Tobacco Tobacco use type: Cigarette e-Cigarette/Vaping Use: Never Used Second Hand Smoke Exposure: No service: No Current occupational status: retired Current occupation: right handed Cognitive needs: No Hearing needs: Yes (hearing aide) Vision needs: Yes (glasses) Questionnaire Medicare Wellness Checkup [age] What gender do you identify with?: male During the past 4 weeks, how much have you been bothered by emotional problems such as feeling anxious, depressed, irritable, sad or downhearted, and blue?: not at all During the past 4 weeks, has your physical & emotional health limited your social activities with family, friends, neighbors, or groups?: not at all During the past 4 weeks, how much bodily pain have you generally had?: no pain During the past 4 weeks, was someone available to help you if you needed & wanted help?: yes, as much as I wanted During the past 4 weeks, what was the hardest physical activity you could do for at least 2 minutes?: heavy Can you get to places out of walking distance without help? (For eg., can you travel alone on buses, taxis or drive your car?): Yes Can you go shopping for groceries or clothes without someone's help?: Yes Can you prepare your own meals?: Yes Can you do your housework without help?: Yes Because of any health problems, do you need the help of another person with your personal care needs such as eating, bathing, dressing or getting around the house?: No Can you handle your own money without help?: Yes During the past 4 weeks, how would you rate your health in general?: good During the past 4 weeks how have things been going for you?: pretty well Are you having difficulties driving your car?: no Do you always fasten your seat belt when you are in a car?: yes, usually During past 4 weeks, have you been bothered by the following: never: Falling or dizzy when standing up, Trouble eating well?, Teeth or denture problems? and Problems using the telephone? Have you fallen 2 or more times in the past year?: No Are you afraid of falling?: No Are you a smoker?: no During the past 4 weeks, how many drinks of wine, beer, or other alcoholic beverages did you have?: 10 or more per week Do you exercise for about 20 minutes 3 or more times a week?: no, I usually do not exercise this much Have you been given information to help with the following?: no: Hazards in your house that might hurt you? and no: Keeping track of your medications? How often do you have trouble taking medicines the way you have been told to take them?: I do not have to take medicine How confident are you that you can control & manage most of your health problems?: very confident What is your race?: White Thrive Questionnaire Date Thrive assessed: 12/29/23 Are you currently unemployed and looking for a job?: No RENETTA-7 AMB Questionnaire RENETTA-7 Date RENETTA - 7 assessed: 03/27/23 Source: Developed by Drs. Castro Jordan, Patricia Sears, Jacques Cornell and colleagues, with an educational jaimie from [employer]. Review of Systems Const Denies poor appetite and Denies weakness Eyes Denies no additional complaints ENT Reports Normal hearing present, Denies dizziness, Denies nasal congestion, Denies tinnitus and Denies sore throat Card Denies chest pain, Denies syncope, Denies rapid heart rate and Denies dyspnea Resp Denies cough and Denies dyspnea GI Denies change in stool character, Reports constipation, Denies diarrhea, Denies nausea and Denies vomiting Denies dysuria and Denies urinary frequency Neuro Reports Normal hearing present, Denies confusion, Denies dizziness, Denies syncope and Denies weakness Psych Denies confusion Physical Exam Vital Signs: Last Vital Signs Pulse 78 12/29/23 10:05 BP 123/80 12/29/23 10:05 Pulse Ox 97 12/29/23 10:05 Oxygen Delivery Method Room Air 12/29/23 10:05 BMI result Body Mass Index 39.6 Const General: No confusion Orientation/consciousness: No confusion HEENT Head: Yes normocephalic Ears: external ears normal and TM's normal bilaterally Face and sinus: Yes normal facial exam Mouth: moist mucous membranes Throat: Yes tonsils normal Eyes Conjunctivae: conjunctivae normal Pupils: Equal, round and reactive pupils present and Pupil accommodation reflex normal Direct Ophthalmoscopy: normal light reflex Neck Neck: No lymphadenopathy Thyroid: Thyroid normal Chest Chest palpation & inspection: normal inspection of the chest Resp Effort & Inspection: normal respiratory effort and no audible wheezes Auscultation: clear to auscultation bilaterally, no crackles, no wheezes and lung sounds not diminished Cardio Rate: regular rate Rhythm: regular rhythm Peripheral pulses: radial pulses present and dorsalis pedis present GI Other: rectal exam negative guaiac noted a prostate nodule on the L side1 x 1 cm Palpation (GI): no masses Auscultation: normal bowel sounds and normoactive bowel sounds Male General Exam: Yes normal external exam Skin General skin exam: no rashes or lesions noted Rashes: no rashes Neuro General: No confusion Cranial nerves: Yes Equal, round and reactive pupils present and Yes Normal hearing present Cognition (Neuro): normal cognition Gait exam (Neuro): Normal gait present Motor exam (neuro): 5/5 motor strength present throughout Deep tendon reflexes (DTR's): Right brachioradialis reflex intensity grade: 2+, Left brachioradialis reflex intensity grade: 2+, Right patellar reflex intensity grade: 2+ and Left patellar reflex intensity grade: 2+ Extrem General: No edema Results AMB Hemoglobin A1c AMB Hemoglobin A1c 5.9 % Last Edit by SHALONDA Lopez on 12/29/23 10:16 Results Reviewed Results Reviewed: Laboratory Last Values Hgb A1c (Clinic) 5.9 % (4.0-6.0) 12/29/23 10:02 Assessment & Plan Assessment & Plan (1) Medicare annual wellness visit, subsequent: Code(s): Z00.00 - Encounter for general adult medical examination without abnormal findings Plan: Patient is advised to eat healthy, keep well hydrated, keep active and have adequate sleep. (2) Hepatic steatosis: Comment: 02/2021, October 2023 Code(s): K76.0 - Fatty (change of) liver, not elsewhere classified Plan: Low-fat diet and exercise (3) Impaired glucose tolerance: Code(s): R73.02 - Impaired glucose tolerance (oral) Plan: Decrease the amount of carbohydrate intake, pasta, bread, rice and potatoes are all sugar and that is aside from all the sweet stuff, remember that fruits are good but they are Sweet also. (4) Obesity (BMI 30-39.9): Code(s): E66.9 - Obesity, unspecified Plan: Diet and exercise (5) Prostate nodule without urinary obstruction: Code(s): N40.2 - Nodular prostate without lower urinary tract symptoms Plan: advised US of the prostate (6) Plantar fasciitis of left foot: Code(s): M72.2 - Plantar fascial fibromatosis Plan: gel insoles, cushion, exercises. if persist to call Orders: Orders Hemoglobin A1c 1 Year R73.02 - Impaired glucose tolerance (oral) Comprehensive Met. Panel 1 Year R73.02 - Impaired glucose tolerance (oral) Complete Blood Count Auto Diff 1 Year R73.02 - Impaired glucose tolerance (oral) Thyroid Stimulating Hormone 1 Year R73.02 - Impaired glucose tolerance (oral) Vitamin B12 and Folate 1 Year R73.02 - Impaired glucose tolerance (oral) Lipid Panel 1 Year E78.00 - Pure hypercholesterolemia, unspecified, R73.02 - Impaired glucose tolerance (oral) AMB Hemoglobin A1c Today R73.02 - Impaired glucose tolerance (oral) US prostate volume Today N40.2 - Nodular prostate without lower urinary tract symptoms Prostate Specific Antigen Scr 1 Year N40.2 - Nodular prostate without lower urinary tract symptoms Free T4 (Free Thyroxine) 1 Year R73.02 - Impaired glucose tolerance (oral) Coding Level of Care Code Medicare Subsequent (G0439) Diagnoses Medicare annual wellness visit, subsequent Z00.00 Hepatic steatosis K76.0 Impaired glucose tolerance R73.02 Obesity (BMI 30-39.9) E66.9 Prostate nodule without urinary obstruction N40.2 Plantar fasciitis of left foot M72.2
[2023-12-29 10:05] VITALS: BP 123/80; PULSE 78; O2SAT 97; BMI 39.6
== END 2023-12-29 10:59 | disposition home or self-care (01) ==
PROVIDERS: PCP Internal Medicine; Visit Provider Internal Medicine
DX: Z00.00 Encounter for general adult medical examination without abnormal findings (principal); K76.0 Fatty (change of) liver, not elsewhere classified; R73.02 Impaired glucose tolerance (oral); Z68.39 Body mass index [BMI] 39.0-39.9, adult; E66.812 Obesity, class 2; N40.2 Nodular prostate without lower urinary tract symptoms; M72.2 Plantar fascial fibromatosis

== ENCOUNTER → 2023-12-29 09:55 | Outpatient (BNVA) | payer MEDICARE, SELFPAY | PROVIDERS: PCP Internal Medicine; Visit Provider Internal Medicine | DX: Z00.00 Encounter for general adult medical examination without abnormal findings (principal); K76.0 Fatty (change of) liver, not elsewhere classified; R73.02 Impaired glucose tolerance (oral); E66.9 Obesity, unspecified; N40.2 Nodular prostate without lower urinary tract symptoms; M72.2 Plantar fascial fibromatosis | CPT/HCPCS: 83036 ==

== ENCOUNTER 2024-01-06 12:45 | Outpatient (REF) | payer MEDICARE, SELFPAY | END 2024-01-06 12:46 | disposition home or self-care (01) | LOC: HO.US 12:45 | PROVIDERS: PCP Internal Medicine; Visit Provider Internal Medicine | DX: N40.2 Nodular prostate without lower urinary tract symptoms (principal) | CPT/HCPCS: 76872 ==

== ENCOUNTER 2025-01-06 09:48 | Outpatient (AMB) | payer MEDICARE, SELFPAY ==
--- NOTE | 2025-01-06 09:57 | A.OFFVIS_ITS ---
Intake Vital Signs 01/06/25 09:58 Height 6 ft Weight 296 lb 8 oz BMI 40.2 BP 140/90 H Blood Pressure Location Lt brachial Position Sitting Pulse 85 Pulse Source Pulse Oximeter Temp 97.1 F Temp Source Temporal Artery Scan Pulse Oximetry (%) 96 Oxygen Delivery Method Room Air Intake Visit Reasons: SWV G0439 Allergies No Known Allergies Allergy (Verified 01/06/25 10:01) Medication List - Last Reconciled 01/06/25 by Nidia Lua MD diphenhydramine HCl (ZzzQuil) 25 mg PO BEDTIME PRN HPI SWV G0439 HPI Details [facility] gastroenterology Dr. Wright, Orthopedics Dr. Alarcon [facility] Medical History Colon cancer screening Obese Elevated fasting glucose Screening for prostate cancer Elevated liver enzymes Screening for hypercholesterolemia Screening for diabetes mellitus (DM) Annual physical exam Essential tremor Angular cheilitis Foot laceration Insomnia Obesity (BMI 30-39.9) Impingement syndrome of right shoulder History of varicose veins Surgical History History of colonoscopy Varicose veins of both lower extremities H/O gastric bypass History of tonsillectomy Hx of cholecystectomy History of hammer toe correction Family History Mother No problems noted. Father No problems noted. Social History (Updated 01/06/25 @ 10:47 by Nidia Lua MD) Housing: House Alcohol intake: current Alcohol intake frequency: 3 or more drinks per day Alcohol type: beer Comment: case a week( 4-5 x a week 6 pack 12/2023) 3x a week Patient Tobacco Use Status: Never used Tobacco Tobacco use type: Cigarette e-Cigarette/Vaping Use: Never Used Second Hand Smoke Exposure: No service: No Current occupational status: retired Current occupation: right handed Cognitive needs: No Hearing needs: Yes (hearing aide) Vision needs: Yes (glasses) Questionnaire Medicare Wellness Checkup [age] What gender do you identify with?: male During the past 4 weeks, how much have you been bothered by emotional problems such as feeling anxious, depressed, irritable, sad or downhearted, and blue?: not at all During the past 4 weeks, has your physical & emotional health limited your social activities with family, friends, neighbors, or groups?: not at all During the past 4 weeks, how much bodily pain have you generally had?: mild pain During the past 4 weeks, was someone available to help you if you needed & wanted help?: yes, as much as I wanted During the past 4 weeks, what was the hardest physical activity you could do for at least 2 minutes?: heavy Can you get to places out of walking distance without help? (For eg., can you travel alone on buses, taxis or drive your car?): Yes Can you go shopping for groceries or clothes without someone's help?: Yes Can you prepare your own meals?: Yes Can you do your housework without help?: Yes Because of any health problems, do you need the help of another person with your personal care needs such as eating, bathing, dressing or getting around the house?: No Can you handle your own money without help?: Yes During the past 4 weeks, how would you rate your health in general?: very good During the past 4 weeks how have things been going for you?: pretty well Are you having difficulties driving your car?: no Do you always fasten your seat belt when you are in a car?: yes, usually During past 4 weeks, have you been bothered by the following: never: Falling or dizzy when standing up, Trouble eating well?, Teeth or denture problems?, Problems using the telephone? and Tiredness or fatigue? and always: Sexual problems? Have you fallen 2 or more times in the past year?: No Are you afraid of falling?: No Are you a smoker?: no During the past 4 weeks, how many drinks of wine, beer, or other alcoholic beverages did you have?: 10 or more per week Do you exercise for about 20 minutes 3 or more times a week?: no, I usually do not exercise this much Have you been given information to help with the following?: no: Hazards in your house that might hurt you? and no: Keeping track of your medications? How often do you have trouble taking medicines the way you have been told to take them?: I do not have to take medicine How confident are you that you can control & manage most of your health problems?: very confident What is your race?: White PHQ-9 Over the last 2 weeks, how often have you been bothered by any of the following problems? 1. Little interest or pleasure in doing things: not at all 2. Feeling down, depressed, or hopeless: not at all 3. Trouble falling or staying asleep, or sleeping too much: not at all 4. Feeling tired or having little energy: not at all 5. Poor appetite or overeating: not at all 6. Feeling bad about yourself - or that you are a failure or have let yourself or your family down: not at all 7. Trouble concentrating on things, such as reading the newspaper or watching television: not at all 8. Moving or speaking so slowly that other people could have noticed. Or the opposite - being so fidgety or restless that you have been moving around a lot more than usual: not at all 9. Thoughts that you would be better off or of hurting yourself in some way: not at all Total score: 0 Depression Screening Interpretation: Negative Depression Screening Done: Yes 52831 - PHQ-9 Billing: Yes Source: Developed by Drs. Castro Jordan, Patricia Sears, Jacques Cornell and colleagues, with an educational jaimie from [employer]. Review of Systems Const Denies poor appetite and Denies weakness Eyes Denies no additional complaints ENT Reports Normal hearing present, Denies dizziness, Denies nasal congestion, Denies tinnitus and Denies sore throat Card Denies chest pain, Denies syncope, Denies rapid heart rate and Denies dyspnea Resp Denies cough and Denies dyspnea GI Denies change in stool character, Reports constipation, Denies diarrhea, Denies nausea and Denies vomiting Denies dysuria and Denies urinary frequency Neuro Reports Normal hearing present, Denies confusion, Denies dizziness, Denies syncope and Denies weakness Psych Denies confusion Physical Exam Vital Signs: Last Vital Signs Temp 97.1 F 01/06/25 09:58 Pulse 85 01/06/25 09:58 BP 140/90 H 01/06/25 09:58 Pulse Ox 96 01/06/25 09:58 Oxygen Delivery Method Room Air 01/06/25 09:58 BMI result Body Mass Index 40.2 Const General: No confusion Orientation/consciousness: No confusion HEENT Head: Yes normocephalic Ears: external ears normal and TM's normal bilaterally Face and sinus: Yes normal facial exam Mouth: moist mucous membranes Throat: Yes tonsils normal Eyes Conjunctivae: conjunctivae normal Pupils: Equal, round and reactive pupils present and Pupil accommodation reflex normal Direct Ophthalmoscopy: normal light reflex Neck Neck: No lymphadenopathy Thyroid: Thyroid normal Chest Chest palpation & inspection: normal inspection of the chest Resp Effort & Inspection: normal respiratory effort and no audible wheezes Auscultation: clear to auscultation bilaterally, no crackles, no wheezes and lung sounds not diminished Cardio Rate: regular rate Rhythm: regular rhythm Peripheral pulses: radial pulses present and dorsalis pedis present GI Other: guaiac negative , prostate enlarged Palpation (GI): no masses Auscultation: normal bowel sounds and normoactive bowel sounds Male General Exam: Yes normal external exam Skin General skin exam: no rashes or lesions noted Rashes: no rashes Neuro General: No confusion Cranial nerves: Yes Equal, round and reactive pupils present and Yes Normal hearing present Cognition (Neuro): normal cognition Gait exam (Neuro): Normal gait present Motor exam (neuro): 5/5 motor strength present throughout Deep tendon reflexes (DTR's): Right brachioradialis reflex intensity grade: 2+, Left brachioradialis reflex intensity grade: 2+, Right patellar reflex intensity grade: 2+ and Left patellar reflex intensity grade: 2+ Extrem Other: pedal pulse present with doppler. General: No edema Immunizations Tenivac (PF) 5 Lf unit-2 Lf unit/0.5 mL intramuscular syringe Performing Provider: Nidia Lua MD Performing [facility] Administered by: Mariam Shafer CMA on 01/06/25 11:09 Dose Route Admin Location Dispensed Lot Number Expiration Date NDC Retail Sales Associate Seasonal 0.5 mL IM Left Deltoid 0.5 mL [id number] 06/14/26 42399-133-77 [employer] Total Dispensed Waste 0.5 mL 0 % VIS Given Date VIS Provided VIS Publication Date 01/06/25 Single Vaccine 20 Eligibility Eligibility Date Funding Source Not [facility] Eligible 01/06/25 Private Assessment & Plan Assessment & Plan (1) Medicare annual wellness visit, subsequent: Code(s): Z00.00 - Encounter for general adult medical examination without abnormal findings Plan: Patient is advised to eat healthy, keep well hydrated, keep active and have adequate sleep. (2) Peripheral neuropathy: Code(s): G62.9 - Polyneuropathy, unspecified Plan: Advised to get blood work tested (3) BPH (benign prostatic hyperplasia): Comment: FebruaryPH with 64 cc gland. Code(s): N40.0 - Benign prostatic hyperplasia without lower urinary tract symptoms Plan: Continue to follow-up with urology (4) Vitamin B 12 deficiency: Code(s): E53.8 - Deficiency of other specified B group vitamins Plan: Retest blood work (5) Impaired glucose tolerance: Code(s): R73.02 - Impaired glucose tolerance (oral) Plan: Decrease the amount of carbohydrate intake, pasta, bread, rice and potatoes are all sugar and that is aside from all the sweet stuff, remember that fruits are good but they are Sweet also. (6) Morbid obesity: Code(s): E66.01 - Morbid (severe) obesity due to excess calories Plan: Diet and exercise (7) Blood pressure elevated without history of HTN: Code(s): R03.0 - Elevated blood-pressure reading, without diagnosis of hypertension Plan History of Present Illness The patient is a 74-year-old male presenting for an annual wellness visit. The patient has a history of morbid obesity, hepatic steatosis, and impaired glucose tolerance. These conditions have been monitored over time, with no significant changes reported. He has benign prostatic hyperplasia, confirmed by a prostate ultrasound showing a 64 cc gland. The patient experiences nocturia, waking up approximately three times per night, but declines medication at this time. The patient has a history of peripheral vascular disease and vitamin B12 deficiency, for which he takes supplements inconsistently. He reports tingling in his fingers and toes, possibly related to his glucose tolerance or vitamin deficiency. The patient experienced an episode of hematuria in November, which resolved without intervention. His blood pressure is slightly elevated at 140/80 mmHg, and he has been advised to monitor it weekly at home. Health Maintenance - Annual wellness visit conducted - Prostate ultrasound performed, showing benign prostatic hyperplasia - Blood pressure monitoring advised weekly at home - Vitamin B12 supplementation recommended - Tetanus vaccination due, last received in 2013 - Flu, shingles, and COVID vaccinations up to date Social History - Alcohol consumption: Drinks approximately six drinks per session, three times a week, primarily during sports events. - Smoking: Denies smoking cigarettes or marijuana. 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 Review of Systems - General: Denies fever, weight loss, or fatigue. - Cardiovascular: Denies chest pain, palpitations, or syncope. - Respiratory: Denies dyspnea or cough. - Gastrointestinal: Denies nausea, vomiting, or changes in bowel habits. - Genitourinary: Reports nocturia, denies dysuria or hematuria currently. - Neurological: Reports tingling in fingers and toes, denies headaches or dizzi ness. Physical Exam General: Cooperative, healthy appearing, comfortable, no acute distress and well developed Orientation: Patient oriented x3 Limitations: No limitations Head: Normal to inspection Ears: Hearing grossly normal bilaterally, patient uses hearing aids Nose: Normal external nose present Face and sinus: Normal facial exam Eyes: Appearance normal, both eyes and all related structures Neck: Normal visual inspection and Yes full ROM Respiratory: Normal respiratory effort and able to speak in complete sentences. Clear to auscultation bilaterally Cardiovascular: Regular rate and rhythm. Normal S1 and S2 GI: Normal to inspection. Soft to palpation and nontender Skin: No rashes or lesions noted, small wart in ear noted Neuro: Patient oriented x3, reports tingling in fingers and toes Extremities: Normal to inspection, weaker blood supply noted in feet Results - Labs: Normal blood count, normal electrolytes, A1c at 5.9%, LDL cholesterol at 72 mg/dL, low vitamin B12. - Imaging: Prostate ultrasound showed benign prostatic hyperplasia with a 64 cc gland. Plan Patient was informed and verbally consented to the use of an ambient scribe for clinic note documentation during this visit. 1. Morbid Obesity The patient is advised to engage in regular physical activity and follow a balanced diet to manage weight. Regular follow-up appointments are recommended to monitor progress and adjust the management plan as needed. 2. Hepatic Steatosis The patient is advised to reduce alcohol intake to prevent progression of liver disease. Regular monitoring of liver function tests is recommended to assess liver health. 3. Impaired Glucose Tolerance The patient is advised to monitor blood glucose levels regularly and maintain a healthy diet and exercise regimen. Follow-up appointments are necessary to monitor glucose levels and prevent progression to diabetes. 4. Benign Prostatic Hyperplasia The patient is advised to continue monitoring symptoms and report any changes. Follow-up with urology is recommended if symptoms worsen or become bothersome. 5. Peripheral Vascular Disease The patient is advised to engage in regular physical activity to improve circulation. Regular follow-up appointments are recommended to monitor symptoms and adjust the management plan as needed. 6. Vitamin B12 Deficiency The patient is advised to take vitamin B12 supplements regularly to address deficiency. Follow-up blood tests are recommended to monitor vitamin B12 levels and adjust supplementation as needed. 7. Hypertension The patient is advised to monitor blood pressure at home weekly and record the readings. Lifestyle modifications, including diet and exercise, are recommended to manage blood pressure. Discussion Notes During the visit, I discussed with the patient the importance of managing his morbid obesity through diet and exercise. We also talked about reducing alcohol intake to prevent further liver damage due to hepatic steatosis. I advised him to monitor his blood pressure weekly and to take vitamin B12 supplements regularly. We reviewed the need for follow-up appointments to monitor his glucose levels and prostate health. Patient Instructions - Engage in regular physical activity and maintain a balanced diet to manage weight. - Reduce alcohol intake to protect liver health. - Monitor blood pressure at home weekly and record the readings. - Take vitamin B12 supplements regularly as prescribed. - Schedule follow-up appointments to monitor glucose levels and prostate health. Orders: Orders Vitamin B1 Today R73.02 - Impaired glucose tolerance (oral) Vitamin A Today R73.02 - Impaired glucose tolerance (oral) Td Immunization Today Z23 - Encounter for immunization UA CC w/rflx Micro + Cult Today R30.0 - Dysuria Quality Reporting (2019) Depression/Bipolar (159/160/161/177) PHQ-9: Total score: 0 Coding Level of Care Code Medicare Subsequent (G0439) Diagnoses Medicare annual wellness visit, subsequent Z00.00 Peripheral neuropathy G62.9 BPH (benign prostatic hyperplasia) N40.0 Vitamin B 12 deficiency E53.8 Impaired glucose tolerance R73.02 Morbid obesity E66.01 Blood pressure elevated without history of HTN R03.0 Additional Codes PHQ-9 - 66338 - PHQ-9 Billing: Yes ([id number])
[2025-01-06 09:58] VITALS: BP 140/90; PULSE 85; TEMP 36.2; O2SAT 96; BMI 40.2
--- OUTSIDE RECORDS SUMMARY | 2025-01-06 11:05 | XMS_ITS | Patient Health Record ---
Author Organization [facility] [place] Address [address] [place] [address] Care Team Providers Care Credit Reference Clerk Name Role Phone Nidia Lua Primary Care Provider Elver e Precious Aqunio Unavailable [phone] Reason For Referral No Information Medications Medication SIG (Take, Route, Frequency, Duration) Notes Start Date End Date Status Multivitamin Adult - Orally Active Calcium 1 tab Oral Active Keflex 500 MG 1 capsule Orally jenny ry 12 hrs; Duration: 10 day(s) 12/17/2017 Not-Taking Gabapentin 300mg 1 orally at bedtime; Duration: 10 days 11/12/2017 Not-Taking Calcium + D 600-200 MG-UNIT 1 tablet with food Orally Once a day; Duration: 30 day(s) Not-Taking Ambien CR 6.25 MG 1 tablet at bedtime as needed Orally Once a day Not-Taking Vitamin D3 2000 UNIT 1 capsule Orally On ce a day Active Vitamin C Active Vitamin B12 1000 MCG 1 tablet Orally Onc e a day Active Zantac 150 MG 1 tablet Orally Twic e a day; Duration: 30 day(s) Active Acetaminophen Extra Strength 500 MG 2 tablets as needed Orally every 6 hrs; Duration: 10 days 11/12/2017 Active Ibuprofen 800 MG 1 tablet with food o r milk as needed Orally Three times a day; Duration: 10 days 11/12/2017 Active Walking Boot/Pneumatic As directed Wear Daily; Duration: Until further notice 12/04/2017 Active Gabapentin 300 MG 1 capsule Orally Onc e a day; Duration: 20 days 12/17/2017 Not-Taking Immunizations Vaccine Route Administration Date Status Comme nts Influenza Unknown 01/11/2018 Administered Social History Tobacco Use: Social History Observation Description Date Details (start date - stop date) Never Smoker NA - NA Tobacco Use/Smoking Question Answer Notes Are you a: nonsmoker Additional Findings: Tobacco Non-User Current no n-smoker Alcohol Screen Question Answer Notes Did you have a drink containing alcohol in the p ast year? Yes Points 0 Interpretation Negative Tobacco use other than smoking: Question Answer Notes Are you an other tobacco user? No Problems Problem Type SNOMED Code ICD Code Onset Dates Problem Status W/U Status Risk Notes Problem Information temporarily unavailable Other hammer toe(s) (acquired), right foot (M20.41) Active confirmed Problem Information temporarily unavailable Other hammer toe(s) (acquired), left foot (M20.42) Active confirmed Problem Information temporarily unavailable Hammer toe of right foot (M20.41) Active confirmed Plan Of Treatment Pending Test Test Name Order Date X ray : Foot, right 2V 12/17/2017 *Wound Culture 12/17/2017 X ray : Foot, right 3V 02/10/2012, [id number]- INJECT or DRAIN, JOINT/BUR SA 02/10/2012 [id number] 3mg 02/10/2012 Insurance Providers Payer Name Payer Address Payer Phone Subscriber Number Group Number Insured Name Patient Relationship to Insured Coverage Start Date Coverage End Date [facility] All Others [address] [place] [address] [phone] [id number] Roberto Coley Self - patient is the insured Medical (General) History Medical History History ICD Code chicken pox mumps measles cancer Arthritis skin cancer Gall bladder problems Acid reflux Surgical History Surgery Date(Month/Year) cholecystectomy gastric bypass 2008 tonsillectomy and adenoidectomy vein surgery HT repair with kwire 2nd right T6 2017 HT repair with kwire 2nd Left T1 8
--- OUTSIDE RECORDS SUMMARY | 2025-01-06 11:05 | XMS_ITS | Patient Health Record ---
Author Organization [facility] Address [address] [place] [id number] Care Team Providers Care Commercial Designer Name Role Phone Nidia Lua MD Primary Care Provider Castro Anders Unavailable [phone] Reason For Referral No Information Medications Medication SIG (Take, Route, Frequency, Duration) Notes Start Date End Date Status Vitamin B12 1000 MCG 1 tablet Orally Onc e a day; Duration: 30 day(s) Active Viactiv Calcium Plus D 650-12.5-40 MG-MCG as directed Orally Act bear Multivitamin Adults - as directed Orally Active Vitamin C 500 MG 1 tablet Orally m-f Active Vitamin D3 25 MCG (1000 UT) 1 capsule Orally twice a day Active Zantac 150 MG 1 tablet Orally twic e a day Not-Taking Immunizations Vaccine Route Administration Date Status Comme nts Influenza Unknown 01/06/2019 Administered Social History Tobacco Use: Social History Observation Description Date Details (start date - stop date) Never Smoker NA - NA Tobacco Use/Smoking Question Answer Notes Patient is a nonsmoker Alcohol Screen Question Answer Notes Did you have a drink contain ing alcohol in the past year? Yes How often did you have a dri nk containing alcohol in the past year? 4 or more times a week (4 points) How many drinks did you have on a typical day when you were drinking in the past year? 3 or 4 drinks (1 point) How often did you have 6 or more drinks on one occasion in the past year? Never (0 point) Points 5 Interpretation Positive Section Notes: Nonsmoker; drinks 4 beers se veral times per week Problems Problem Type SNOMED Code ICD Code Onset Dates Problem Status W/U Status Risk Notes Problem Information temporarily unavailable Encounter for screening for malignant neoplasm of colon (Z12.11) Active confirmed Problem Information temporarily unavailable Preprocedural examination (Z01.818) Active confirmed Plan Of Treatment Future Test Test Name Order Date COLONOSCOPY 01/20/2019 Insurance Providers Payer Name Payer Address Payer Phone Subscriber Number Group Number Insured Name Patient Relationship to Insured Coverage Start Date Coverage End Date MEDICARE OF [place] [address] [place] [address] [id number] BOB THURMAN Self - patient is the insured [employer] CLAIMS [address] [place] [address] [id number] BOB THURMAN Self - patient is the insured Medical (General) History Medical History History ICD Code Denies [place],DM,CVA,Lung disease,renal dise ase Negative colonoscopy(by his report) appr ox at age 60 Neg EGD and Flex sig with me in 1999--ne g gastric bx for H.pylori Previous sleep apnea Surgical History Surgery Date(Month/Year) Tonsillectomy Varicose vein stripping Gastric bypass in approx 200 7 at [facility]--went from 300# to 175#, but back up to 260# [facility] Hammer toes on both feet
== END 2025-01-06 11:11 | disposition home or self-care (01) ==
LOC: HO.HMCH 09:48
PROVIDERS: PCP Internal Medicine; Visit Provider Internal Medicine
DX: Z00.00 Encounter for general adult medical examination without abnormal findings (principal); G62.9 Polyneuropathy, unspecified; E66.01 Morbid (severe) obesity due to excess calories; Z68.41 Body mass index [BMI] 40.0-44.9, adult; N40.0 Benign prostatic hyperplasia without lower urinary tract symptoms; E53.8 Deficiency of other specified B group vitamins; R73.02 Impaired glucose tolerance (oral); R03.0 Elevated blood-pressure reading, without diagnosis of hypertension; Z23 Encounter for immunization

== ENCOUNTER → 2025-01-06 09:48 | Outpatient (BNVA) | payer MEDICARE, SELFPAY | PROVIDERS: PCP Internal Medicine; Visit Provider Internal Medicine | DX: Z23 Encounter for immunization (principal); Z13.31 Encounter for screening for depression | CPT/HCPCS: 90471; 90714; 96127 ==

== ENCOUNTER 2025-01-18 09:37 | Outpatient (REF) | payer MEDICARE, SELFPAY ==
--- OUTSIDE RECORDS SUMMARY | 2025-01-18 10:47 | XMS_ITS | Patient Health Record ---
Author Organization [facility] Address [address] [place] [id number] Care Team Providers Care Sand Caster Name Role Phone Nidia Lua MD Primary Care Provider Castro Anders [phone] Reason For Referral No Information Medications Medication [...] Problem Status W/U Status Risk Notes Problem Screening for malignant neoplasm of colon ([id number]) Encounter for screening for malignant neoplasm of colon (Z12.11) Active confirmed Problem Preprocedural examination ([id number]) Preprocedural examination (Z01.818) Active confirmed Plan Of Treatment Future Test Test Name Order Date COLONOSCOPY 01/20/2019 Insurance Providers Payer Name Payer Address Payer Phone Subscriber Number Group Number Insured Name Patient Relationship to Insured Coverage Start Date Coverage End Date MED[place]ARE OF [place] [address] [place] [address] [id number] BOB THURMAN Self - patient is the insured MED[employer] ATTN CLAIMS [address] [place] [address] [phone] [id number] BOB THURMAN Self - patient is the insured Medical (General) History Medical History History ICD Code Denies [place],DM,CVA,Lung disease,renal dise ase Negative colonoscopy(by his report) appr ox at age 60 Neg EGD and Flex sig with me in 1999--ne g gastric bx for H.pylori Previous sleep apnea Surgical History Surgery Date(Month/Year) Tonsillectomy Varicose vein stripping Gastric bypass in approx 200 7 at [facility]--went from 300# to 175#, but back up to 260# [facility] Hammer toes on both feet
--- OUTSIDE RECORDS SUMMARY | 2025-01-18 10:48 | XMS_ITS | Patient Health Record ---
Author Organization [facility] [place] Address [address] [place] [address] Care Team Providers Care Laborer [place] Name Role Phone Nidia Lua Primary Care Provider Elver e Precious Aquino Unavailable [phone] Reason For Referral No Information Medications Medication [...] Problem Status W/U Status Risk Notes Problem Acquired hammer toe of right foot (4308996588623 105) Other hammer toe(s) (acquired), right foot (M20.41) Active confirmed Problem Acquired hammer toe of left foot (8358306394692 103) Other hammer toe(s) (acquired), left foot (M20.42) Active confirmed Problem Acquired hammer toe of right foot (8764626234640 105) Hammer toe of right foot (M20.41) Active confirmed Plan Of Treatment Pending Test Test Name Order Date X ray : Foot, right 2V 12/17/2017 *Wound Culture 12/17/2017 X ray : Foot, right 3V 02/10/2012, J0702- INJECT or DRAIN, JOINT/BUR SA 02/10/2012 [id number] 3mg 02/10/2012 Insurance Providers Payer Name Payer Address Payer Phone Subscriber Number Group Number Insured Name Patient Relationship to Insured Coverage Start Date Coverage End Date [facility] All Others [address] [place] [address] [phone] [id number] Roberto Coley Self - patient is the insured Medical (General) History Medical History History ICD Code chicken pox mumps measles cancer Arthritis skin cancer Gall bladder problems Acid reflux Surgical History Surgery Date(Month/Year) cholecystectomy gastric bypass 2009 tonsillectomy and adenoidectomy vein surgery HT repair with kwire 2nd right T6 2017 HT repair with kwire 2nd Left T1 8
[2025-01-18 13:33] LABS: MANUAL DIFF FLAG NO
[2025-01-18 13:43] LABS: Hematocrit 42.8 % (42.0-52.0); Hemoglobin 13.6 g/dl (14.0-18.0); Imm Gran Abs Auto 0.01 X10*3/uL (0.00-0.03); Imm Gran Pct Auto 0.2 % (0.0-0.4); Lymphocytes Absolute Auto 1.7 X10*3/uL (1.2-4.9); Mean Corpuscular HGB Conc 31.8 g/dl (31.0-36.0); Mean Corpuscular Hemoglobin 28.8 pg (27.0-33.0); Mean Corpuscular Volume 90.5 fL (80.0-98.0); NRBC Abs Auto 0.000 X10*3/uL (0.0-0.012); NRBC Pct Auto 0.0 /100WBC (0.0-0.2); Platelet Count 224 X10*3/uL (160-400); Red Blood Count 4.73 X10*6/uL (4.60-5.80); White Blood Count 5.6 X10*3/uL (4.8-10.8)
[2025-01-18 14:06] LABS: Alanine Aminotransferase 32 U/L (0-40); Albumin Level 4.0 g/dL (3.5-5.0); Alkaline Phosphatase 34 U/L (39-117); Anion Gap 8 (12-20); Aspartate Amino Transferase 38 U/L (5-37); Blood Urea Nitrogen 14 mg/dL (9-16); Calcium 8.5 mg/dL (8.4-10.2); Carbon Dioxide 25 mmol/L (22-29); Chloride 111 mmol/L (96-108); Cholesterol 148 mg/dL (<200); Estimated Glomerular Filt Rate > 60; HDL Cholesterol 43 mg/dL (>40); Potassium 4.2 mmol/L (3.3-5.1); Sodium 140 mmol/L (135-145); Total Protein 7.1 g/dL (6.5-8.0); Triglycerides 135 mg/dL (<150)
[2025-01-18 14:12] LABS: Free T4 (Free Thyroxine) 0.90 ng/dL (0.71-1.85); Thyroid Stimulating Hormone 1.49 uIU/mL (0.32-4.0)
[2025-01-18 14:21] LABS: Folate 9.3 ng/mL (> or = 4.0); Vitamin B12 188 pg/mL (200-900)
== END 2025-01-18 09:38 | disposition home or self-care (01) ==
LOC: HO.HMGCLDS 09:37
PROVIDERS: PCP Internal Medicine; Visit Provider Internal Medicine
DX: Z12.5 Encounter for screening for malignant neoplasm of prostate (principal); E78.00 Pure hypercholesterolemia, unspecified; N40.2 Nodular prostate without lower urinary tract symptoms; R73.02 Impaired glucose tolerance (oral)
CPT/HCPCS: 36415; 80053; 80061; 82607; 82746; 83036; 84153; 84425; 84439; 84443; 84590; 85025

== ENCOUNTER 2025-01-20 06:30 | Outpatient (REF) | payer MEDICARE, SELFPAY ==
--- OUTSIDE RECORDS SUMMARY | 2025-01-20 07:12 | XMS_ITS | Patient Health Record ---
Author Organization [facility] Address [address] [place] [address] Care Team Providers Care Talent Consultant Name Role Phone Nidia Lua MD Primary Care Provider Castro Anders [phone] Reason For Referral No Information Medications Medication [...] Problem Screening for malignant neoplasm of colon (645395582) Encounter for screening for malignant neoplasm of colon (Z12.11) Active confirmed Problem Preprocedural examination (004426235028979) Preprocedural examination (Z01.818) Active confirmed Plan Of Treatment Future Test Test Name Order Date COLONOSCOPY 01/20/2019 Insurance Providers Payer Name Payer Address Payer Phone Subscriber Number Group Number Insured Name Patient Relationship to Insured Coverage Start Date Coverage End Date MEDICARE OF [place] [address] [place] [address] [id number] BOB THURMAN Self - patient is the insured [employer] CLAIMS [address] [place] [address] [phone] [id number] BOB THURMAN Self - patient is the insured Medical (General) History Medical History History ICD Code Denies IA,DM,CVA,Lung disease,renal dise ase Negative colonoscopy(by his report) appr ox at age 60 Neg EGD and Flex sig with me in 1999--ne g gastric bx for H.pylori Previous sleep apnea Surgical History Surgery Date(Month/Year) Tonsillectomy Varicose vein stripping Gastric bypass in approx 200 7 at [facility]--went from 300# to 175#, but back up to 260# [facility]Y Hammer toes on both feet
--- OUTSIDE RECORDS SUMMARY | 2025-01-20 07:12 | XMS_ITS | Patient Health Record ---
Author Organization [facility] [place] Address [address] [facility] [place] [address] Care Team Providers Care Diagnostics Tech Name Role Phone Nidia Lua Primary Care Provider Elver e Precious Aquino Unavailable [phone] Reason For Referral No Information Medications Medication [...] Problem Acquired hammer toe of right foot ([id number] 105) Other hammer toe(s) (acquired), right foot (M20.41) Active confirmed Problem Acquired hammer toe of left foot (2740342235457 103) Other hammer toe(s) (acquired), left foot (M20.42) Active confirmed Problem Acquired hammer toe of right foot (8339906682774 105) Hammer toe of right foot (M20.41) Active confirmed Plan Of Treatment Pending Test Test Name Order Date X ray : Foot, right 2V 12/17/2017 *Wound Culture 12/17/2017 X ray : Foot, right 3V 02/10/2012, J0702- INJECT or DRAIN, JOINT/BUR SA 02/10/2012 [id number] 3mg 02/10/2012 Insurance Providers Payer Name Payer Address Payer Phone Subscriber Number Group Number Insured Name Patient Relationship to Insured Coverage Start Date Coverage End Date [facility] All Others [address] [place] [address] [phone] [id number] Roberto Coley Self - patient is the [...]
[2025-01-20 10:59] LABS: Appearance Urine Clear; Glucose Urine UA Negative (Negative); PH 5.5 (5.0-9.0); Specific Gravity - Urine 1.020 (1.005-1.025)
== END 2025-01-20 06:31 | disposition home or self-care (01) ==
LOC: HO.HMGCLNP 06:30
PROVIDERS: PCP Internal Medicine; Visit Provider Internal Medicine
DX: R30.0 Dysuria (principal)
CPT/HCPCS: 81003